=== PATIENT | female | born 1955 | race Caucasian/White ===

== ENCOUNTER 2017-01-23 07:25 | Day surgery (SDC) | payer OTHER ==
[~2017-01-23] VITALS: Ht 160 cm; Wt 95.0 kg
[~2017-01-23 07:25] MED LIST: ASPI81TA82 PO; ATEN-102 PO; CITA20TA4 PO; HYDRO1%T TOPICAL; LISI-593 PO; METO10 PO; SILV50T TOPICAL; VITA50TA PO; ZOCO40TA PO
[2017-01-23 07:42] VITALS: BP 107/78; PULSE 63; RESP 18; TEMP 97.9; O2SAT 96
[2017-01-23] MEDS ORDERED: SIMV10TA PO (07:50)
[2017-01-23] MEDS ORDERED: TRICCAP PO (07:50)
[2017-01-23] MEDS ORDERED: VENTAER INH (07:50)
[2017-01-23] MEDS ORDERED: ATEN50TA PO (07:50)
[2017-01-23] MEDS ORDERED: ASPI81CH37 CHEW (07:50)
[2017-01-23] MEDS ORDERED: SODIUM CHLOR 0.9% 1000 ML INJ 1,000 ML IV SCH (08:00)
[2017-01-23 08:09] LABS: APTT (PATIENT) 27.8 SEC (24.3-30.1); INTERNATIONAL NORMALIZED RATIO 0.9 RATIO; PROTHROMBIN TIME - PATIENT 10.4 SEC (9.8-11.6)
[2017-01-23] MEDS ORDERED: MIDAZOLAM HCL 2 MG/2 ML VIAL ONE ×2 (08:38→09:07)
[2017-01-23] MEDS ORDERED: VANCOMYCIN HCL 1000 MG VIAL ONE (08:39)
[2017-01-23] MEDS ORDERED: LIDOCAINE 1%/EPINEPHrine 1:100,000 SOLN 20 ML VIAL ONE (08:48)
--- NOTE | 2017-01-23 09:29 | PD.RAD ---
Post Procedure Progress Note Pre Procedure Diagnosis: (1) Rectal cancer Post Procedure Diagnosis: (1) Rectal cancer Procedure Date: Jan 23, 2017 Supervising Radiologist: Terry Smith Proceduralist/Assist: Eduar Sanches, RT(R), Erin Pinzon RT(R) Anesthesia: Local, Analgesia, Conscious Sedation Plan of Activity Patient to Unit: ROPU Patient Condition: Good See PACS Report for procedural detail/treatment Central Venous Access Device Procedure 1 Right Internal Jugular Infusaport Removal single lumen [place]: 8 Terry Smith MD Jan 23, 2017 09:29
[2017-01-23 09:43] VITALS: BP 163/83; PULSE 62; PULSE 82; RESP 17; RESP 19; TEMP 97.8; O2SAT 94; O2SAT 95
[2017-01-23 10:13] VITALS: BP 165/82; PULSE 70; RESP 18; O2SAT 96
[2017-01-23 10:43] VITALS: BP 155/81; PULSE 57; RESP 19; O2SAT 97
--- NOTE | 2017-01-23 16:24 | RADRPT ---
EXAM DATE/TIME: 01/23/2017 00:00 [facility] COMPARISON: No previous studies available for comparison. INDICATIONS : Patient with hx of anal cancer. Finished with treatment. MEDICAL HISTORY : 1. Anal cancer 2. HTN 3. DM 4. depression 5. Osteoarthritis 6. COPD 6. SURGICAL HISTORY : 1. Rt port placement 2.Lisa 3. Cardiac cath 4.Colonoscopy 5. Colon resection ENCOUNTER: Initial ACUITY: 2 days PAIN SCORE: 0/10 SEDATION TIME: 30 minutes 1.) 3 mg midazolam (Versed) IV 2.) 150 mcg fentanyl (Sublimaze) IV Prophylactic antibiotics were administered with appropriate pre-procedure timing. Vancomycin within 2 hrs of procedure, Ancef (or alternative) within 1 hr of procedure. PROCEDURE : 1. Removal of Wtlbyi-i-fytc. 2. Conscious sedation with continuous EKG and oximetry monitoring. The risk, benefits and potential complications of Cbgaiw-i-Tttf removal were discussed. Written conse nt was obtained. The patient was placed supine. The chest wall was prepped in sterile fashion. Full sterile techniqu e was used, including cap, mask, sterile gloves and gown, and a large sterile sheet. Hand hygiene an d 2% chlorhexidine and/or Betadine/alcohol prep was utilized per protocol for cutaneous antisepsis. The skin and subcutaneous tissues were infiltrated with local anesthetic solution. A small incision w as made, the subcutaneous pocket was opened. The port was dissected from the subcutaneous tissues and easily removed in one piece. The pocket incision was closed with subcuticular Vicryl suture. Steri -Strips were applied. Conscious sedation was performed with the prescribed dosages and duration as above in the presence of an independent trained radiology nurse to assist in the monitoring of the patient. EKG and oximetry remained stable throughout the procedure. The patient tolerated the procedure well and there were no complications. The patient was sent to post anesthesia recovery in stable condition. CONCLUSION: Uncomplicated port removal as above. Terry Smith MD on January 23, 2017 at 16:22 Board Certified Radiologist. This report was verified electronically.
== END 2017-01-23 11:40 | disposition home or self-care (01) ==
LOC: HROP 07:25 → HRIP 07:27 → HROP 11:40
PROVIDERS: ATTEND Internal Medicine Hematology & Oncology
DX: Z45.2 Encounter for adjustment and management of vascular access device (principal); C20 Malignant neoplasm of rectum; I10 Essential (primary) hypertension; F32.9 Major depressive disorder, single episode, unspecified; E11.9 Type 2 diabetes mellitus without complications; M19.90 Unspecified osteoarthritis, unspecified site; J44.9 Chronic obstructive pulmonary disease, unspecified; Z79.82 Long term (current) use of aspirin; Z79.51 Long term (current) use of inhaled steroids; Z79.899 Other long term (current) drug therapy
CPT/HCPCS: 36590; 85610; 85730; 99152; 99153; J2250; J3010; J3370; J7030